=== PATIENT | female | born 1965 | race Caucasian/White ===

== ENCOUNTER 2023-03-29 06:00 | Emergency (ER) | payer BC ==
[~2023-03-29] VITALS: Ht 154.9 cm; Wt 59.0 kg
[2023-03-29 06:01] VITALS: BP 120/84; PULSE 68; RESP 17; TEMP 97.7; O2SAT 96
--- NOTE | 2023-03-29 06:04 | NUR ---
to lobby a/w bed ambulatory
[2023-03-29 06:10] VITALS: BP 120/84; PULSE 68; RESP 17; TEMP 97.7; O2SAT 96
--- NOTE | 2023-03-29 07:14 | NUR ---
seen and examined by ANNMARIE
[2023-03-29] MEDS ORDERED: ACET-10509 PO (07:27)
[2023-03-29] MEDS ORDERED: IBUP-1842 PO (07:27)
[2023-03-29] MEDS ORDERED: OFLO5SOL LEFT EYE (07:32)
--- NOTE | 2023-03-29 07:38 | NUR ---
Patient discharged with v/s stable. Written and verbal after care instructions given and explained. Patient verbalized understanding. Ambulatory with steady gait. All questions addressed prior to discharge. Advised to follow up with PMD.
== END 2023-03-29 07:38 | disposition home or self-care (01) ==
LOC: MED 06:00
DX: H01.001 Unspecified blepharitis right upper eyelid (principal); H00.011 Hordeolum externum right upper eyelid; Z79.899 Other long term (current) drug therapy
CPT/HCPCS: 99281